=== PATIENT | female | born 1955 | race Caucasian/White ===

== ENCOUNTER 2020-08-09 12:16 | Inpatient (IN) | payer MEDICARE, BC ==
[~2020-08-09] VITALS: Ht 160 cm; Wt 95.9 kg
[2020-08-09 13:12] LABS: Basophils # (auto) 0.1 10 ^3/uL (0-0.2); Basophils % (auto) 0.7 % (0.0-2.0); Eosinophils # (auto) 0.1 10 ^3/uL (0-0.8); Eosinophils % (auto) 0.9 % (0.0-7.0); Hematocrit 39.3 % (36.0-46.0); Hemoglobin 13.1 g/dL (12.2-16.2); Lymphocytes # (auto) 1.3 10 ^3/uL (0.4-5.4); Lymphocytes % (auto) 16.6 % (10.0-50.0); Mean Corpuscular Hemoglobin 30.1 pg (28.0-32.0); Mean Corpuscular Hgb Conc. 33.3 g/dL (32.0-36.0); Mean Corpuscular Volume 90.2 fL (80.0-100.0); Monocytes # (auto) 0.7 10 ^3/uL (0-1.3); Monocytes % (auto) 8.6 % (0.0-12.0); Neutrophils # (auto) 5.7 10 ^3/uL (1.6-8.6); Neutrophils % (auto) 73.2 % (37.0-80.0); Nucleated Red Blood Cells % 0.1 %; Platelet Count (auto) 216 10^3/uL (140-450); Red Blood Cells 4.36 10^6/uL (4.0-5.20); Red Cell Distribution Width 15.1 % (11.8-14.3); White Blood Cell 7.8 10^3/uL (4.4-10.8)
[2020-08-09 13:28] LABS: INR 0.98 (0.9-1.15); Partial Thromboplastin Time 26.8 sec (23.0-31.2)
[2020-08-09 13:29] LABS: Albumin 3.9 g/dL (3.4-5.0); Anion Gap 2 (5-15); Blood Urea Nitrogen 15 mg/dL (7-18); Calcium 9.3 mg/dL (8.5-10.1); Carbon Dioxide 34 mmol/L (21-32); Chloride 103 mmol/L (98-107); Glucose 87 mg/dL (74-106); Magnesium 2.5 mg/dL (1.6-2.6); Potassium 4.8 mmol/L (3.5-5.1); Sodium 139 mmol/L (136-145)
[2020-08-09 13:34] LABS: Alanine Aminotransferase 86 U/L (13-56); Alkaline Phosphatase 75 U/L (45-117); Aspartate Aminotransferase 65 U/L (15-37); BUN/Creatinine Ratio 12.7; Bilirubin, Total 0.6 mg/dL (0.2-1.0); GFR African American 59 mL/min; GFR Non-African American 49 mL/min; Total Protein 7.1 g/dL (6.4-8.2)
[2020-08-09 13:45] LABS: Urine Bacteria FEW /hpf (None Seen); Urine Blood 3+ /uL (Negative); Urine Mucus FEW (None Seen); Urine Specific Gravity 1.026 (1.001-1.035); Urine WBC 4 /hpf (0 - 5)
[2020-08-09 13:47] LABS: Amylase 70 U/L (25-115); Lipase 274 U/L (73-393)
[2020-08-09 14:32] LABS: Alcohol, Urine < 3.0 mg/dL (0-10); Amphetamine Screen, Urine NEGATIVE (NEGATIVE); Barbiturate Scree,Urine NEGATIVE (NEGATIVE); Benzodiazephine Screen, Urine NEGATIVE (NEGATIVE); Cannabinoid Screen, Urine NEGATIVE (NEGATIVE); Cocaine Screen, Urine NEGATIVE (NEGATIVE); Opiate Scree,Urine NEGATIVE (NEGATIVE); Phencyclidine Screen, Urine NEGATIVE (NEGATIVE)
[2020-08-09] MEDS ORDERED: FUROSEMIDE 20 MG/2 ML VIAL IV ONE (14:45)
[2020-08-09] MEDS ORDERED: ALBUTEROL SULF 2.5 MG/0.5ML(0.5%) NEB SOLN NEB PRN (16:45)
[2020-08-09] MEDS ORDERED: ACETAMINOPHEN 500 MG TAB PO PRN (16:45)
[2020-08-09] MEDS ORDERED: NITROGLYCERIN 0.4 MG SL TAB SL PRN (16:45)
[2020-08-09] MEDS ORDERED: MORPHINE SULF INJ 2 MG/ML SYRINGE 1ML IV PRN ×2 (16:45)
[2020-08-09] MEDS ORDERED: DOCUSATE CALCIUM 240 MG CAP PO PRN (16:45)
[2020-08-09] MEDS ORDERED: hydrALAZINE HCL 20 MG/ML VL IV PRN (16:45)
[2020-08-09] MEDS ORDERED: LACTULOSE 20Gm/30ML SOLN PO PRN (16:45)
[2020-08-09] MEDS ORDERED: ONDANSETRON HCL 4 MG/2 ML VIAL IV PRN (16:45)
[2020-08-09] MEDS ORDERED: LORazepam 0.5 MG TAB PO PRN (16:45)
[2020-08-09 17:08] VITALS: BP 119/74
[2020-08-09 20:00] VITALS: BP 124/73
[2020-08-09 21:29] VITALS: BP 124/73
[2020-08-10 04:58] VITALS: BP 108/61
[2020-08-10 06:11] LABS: Basophils # (auto) 0 10 ^3/uL (0-0.2); Basophils % (auto) 0.5 % (0.0-2.0); Eosinophils # (auto) 0.1 10 ^3/uL (0-0.8); Eosinophils % (auto) 1.2 % (0.0-7.0); Hematocrit 41.5 % (36.0-46.0); Hemoglobin 14.1 g/dL (12.2-16.2); Lymphocytes # (auto) 0.9 10 ^3/uL (0.4-5.4); Lymphocytes % (auto) 14.7 % (10.0-50.0); Mean Corpuscular Hgb Conc. 33.9 g/dL (32.0-36.0); Mean Corpuscular Volume 91.5 fL (80.0-100.0); Monocytes # (auto) 0.4 10 ^3/uL (0-1.3); Monocytes % (auto) 6.7 % (0.0-12.0); Neutrophils # (auto) 4.9 10 ^3/uL (1.6-8.6); Neutrophils % (auto) 76.9 % (37.0-80.0); Nucleated Red Blood Cells % 0.3 %; Platelet Count (auto) 174 10^3/uL (140-450); Red Blood Cells 4.54 10^6/uL (4.0-5.20); Red Cell Distribution Width 15.3 % (11.8-14.3); White Blood Cell 6.3 10^3/uL (4.4-10.8)
[2020-08-10 06:28] LABS: Potassium 4.4 mmol/L (3.5-5.1)
[2020-08-10 06:41] LABS: Bilirubin, Total 0.5 mg/dL (0.2-1.0); Calcium 9.4 mg/dL (8.5-10.1); Total Protein 7.1 g/dL (6.4-8.2)
[2020-08-10] MEDS ORDERED: LEVOTHYROXINE SODIUM 25 MCG TAB PO SCH (07:00)
[2020-08-10 08:47] VITALS: BP 102/57
[2020-08-10] MEDS ORDERED: FUROSEMIDE 40 MG/4 ML VIAL IV ONE (10:00)
[2020-08-10] MEDS ORDERED: LISINOPRIL 5 MG TAB PO SCH (10:00)
[2020-08-10] MEDS: METOPROLOL TARTRATE 25 MG TAB PO SCH ×2 (10:28→22:01)
[2020-08-10] MEDS: PANTOPRAZOLE 40 MG TAB PO SCH (10:29)
[2020-08-10] MEDS: ENOXAPARIN SOD 40 MG/0.4 ML SYRINGE SC SCH (10:29)
[2020-08-10 13:00] VITALS: BP 105/61
[2020-08-10 16:50] VITALS: BP 100/55
[2020-08-10] MEDS: FUROSEMIDE 40 MG/4 ML VIAL IV SCH (18:15)
[2020-08-10 20:00] VITALS: BP 105/58
[2020-08-10 22:07] VITALS: BP 103/52
[2020-08-11 05:00] VITALS: BP 98/53
[2020-08-11] MEDS: FUROSEMIDE 40 MG/4 ML VIAL IV SCH ×2 (06:02→18:37)
[2020-08-11 06:22] LABS: Potassium 4.6 mmol/L (3.5-5.1)
[2020-08-11 06:26] LABS: Calcium 8.8 mg/dL (8.5-10.1)
[2020-08-11] MEDS: LEVOTHYROXINE SODIUM 100 MCG/5 ML INJ IV SCH (06:42)
[2020-08-11 07:42] LABS: Protein, Urine 28.1 mg/dL (0.0-11.9)
[2020-08-11 08:17] LABS: Urine Bacteria MANY /hpf (None Seen); Urine Blood 2+ /uL (Negative); Urine Budding Yeast OCCASIONAL /hpf (None Seen); Urine Hyaline Cast FEW /lpf (0 - 2); Urine Mucus FEW (None Seen); Urine Specific Gravity 1.009 (1.001-1.035); Urine Sperm PRESENT /hpf (None Seen); Urine WBC 113 /hpf (0 - 5); Urine WBC Clumps PRESENT /hpf (None Seen)
[2020-08-11 09:00] VITALS: BP 104/48
[2020-08-11] MEDS: ENOXAPARIN SOD 40 MG/0.4 ML SYRINGE SC SCH (10:41)
[2020-08-11] MEDS: PANTOPRAZOLE 40 MG TAB PO SCH (10:41)
[2020-08-11 13:00] VITALS: BP 114/57
[2020-08-11 17:00] VITALS: BP 113/71
[2020-08-11 20:00] VITALS: BP 100/60
[2020-08-11 22:00] VITALS: BP 100/60
[2020-08-12] VITALS (7 sets, daily range): BP systolic 98–129; BP diastolic 48–94
[2020-08-12] MEDS: FUROSEMIDE 40 MG/4 ML VIAL IV SCH ×2 (05:45→17:56)
[2020-08-12 06:03] LABS: Basophils # (auto) 0 10 ^3/uL (0-0.2); Basophils % (auto) 0.2 % (0.0-2.0); Eosinophils # (auto) 0 10 ^3/uL (0-0.8); Eosinophils % (auto) 0.3 % (0.0-7.0); Hematocrit 37.9 % (36.0-46.0); Hemoglobin 12.7 g/dL (12.2-16.2); Lymphocytes # (auto) 0.7 10 ^3/uL (0.4-5.4); Mean Corpuscular Hemoglobin 30.7 pg (28.0-32.0); Mean Corpuscular Hgb Conc. 33.6 g/dL (32.0-36.0); Mean Corpuscular Volume 91.4 fL (80.0-100.0); Monocytes # (auto) 0.7 10 ^3/uL (0-1.3); Monocytes % (auto) 8.8 % (0.0-12.0); Neutrophils # (auto) 6.6 10 ^3/uL (1.6-8.6); Neutrophils % (auto) 81.7 % (37.0-80.0); Platelet Count (auto) 147 10^3/uL (140-450); Red Blood Cells 4.15 10^6/uL (4.0-5.20); Red Cell Distribution Width 14.9 % (11.8-14.3); White Blood Cell 8.1 10^3/uL (4.4-10.8)
[2020-08-12 06:08] LABS: Calcium 9.1 mg/dL (8.5-10.1); Potassium 4.4 mmol/L (3.5-5.1)
[2020-08-12 06:14] LABS: BUN/Creatinine Ratio 16.2
[2020-08-12] MEDS: LEVOTHYROXINE SODIUM 100 MCG/5 ML INJ IV SCH (06:43)
[2020-08-12] MEDS: PANTOPRAZOLE 40 MG TAB PO SCH (09:48)
[2020-08-12] MEDS: ENOXAPARIN SOD 40 MG/0.4 ML SYRINGE SC SCH (09:48)
[2020-08-13] VITALS (7 sets, daily range): BP systolic 100–121; BP diastolic 53–67
[2020-08-13] MEDS: FUROSEMIDE 40 MG/4 ML VIAL IV SCH ×2 (06:13→17:24)
[2020-08-13] MEDS: ASPirin 81 mg TAB PO SCH (10:52)
[2020-08-13] MEDS: LEVOTHYROXINE SODIUM 100 MCG/5 ML INJ IV SCH (10:52)
[2020-08-13] MEDS: ENOXAPARIN SOD 40 MG/0.4 ML SYRINGE SC SCH (10:53)
[2020-08-13] MEDS: PANTOPRAZOLE 40 MG TAB PO SCH (10:53)
[2020-08-13] MEDS: CARVEDILOL 3.125 MG TAB PO SCH ×2 (10:53→22:21)
[2020-08-13 11:22] LABS: Cholesterol 241 mg/dL (< 200); Triglycerides 244 mg/dL (< 150)
[2020-08-13 11:24] LABS: HDL Cholesterol 49 mg/dL (40-59); LDL Cholesterol 167 mg/dL (< 100)
[2020-08-13] MEDS ORDERED: NETA1DRO OP (12:34)
[2020-08-13] MEDS ORDERED: TIMO0.5S66 EACHEYE (12:34)
[2020-08-14 05:00] VITALS: BP 97/47
[2020-08-14] MEDS: FUROSEMIDE 40 MG/4 ML VIAL IV SCH ×2 (06:03→17:30)
[2020-08-14] MEDS: LEVOTHYROXINE SODIUM 100 MCG/5 ML INJ IV SCH (06:46)
[2020-08-14 08:41] VITALS: BP 103/58
[2020-08-14] MEDS: ENOXAPARIN SOD 40 MG/0.4 ML SYRINGE SC SCH (10:10)
[2020-08-14] MEDS: CARVEDILOL 3.125 MG TAB PO SCH ×2 (10:10→21:26)
[2020-08-14] MEDS: ASPirin 81 mg TAB PO SCH (10:10)
[2020-08-14] MEDS: PANTOPRAZOLE 40 MG TAB PO SCH (10:11)
[2020-08-14 13:00] VITALS: BP 102/57
[2020-08-14 17:00] VITALS: BP 106/65
[2020-08-14 17:54] LABS: Urine Bacteria FEW /hpf (None Seen); Urine Blood 3+ /uL (Negative); Urine Mucus FEW (None Seen); Urine Specific Gravity 1.017 (1.001-1.035); Urine WBC 296 /hpf (0 - 5)
[2020-08-14] MEDS: ATORVASTATIN 20 MG TAB PO SCH (21:27)
[2020-08-14 22:00] VITALS: BP 97/56
[2020-08-15 05:00] VITALS: BP_SYST 112; BP_SYST 134; BP_DIAS 56; BP_DIAS 75
[2020-08-15 05:48] LABS: Basophils # (auto) 0 10 ^3/uL (0-0.2); Basophils % (auto) 0.6 % (0.0-2.0); Eosinophils # (auto) 0.1 10 ^3/uL (0-0.8); Eosinophils % (auto) 1.8 % (0.0-7.0); Hematocrit 33.6 % (36.0-46.0); Hemoglobin 11.4 g/dL (12.2-16.2); Lymphocytes # (auto) 0.8 10 ^3/uL (0.4-5.4); Lymphocytes % (auto) 11.5 % (10.0-50.0); Mean Corpuscular Hemoglobin 30.6 pg (28.0-32.0); Monocytes # (auto) 0.7 10 ^3/uL (0-1.3); Monocytes % (auto) 10.7 % (0.0-12.0); Neutrophils % (auto) 75.4 % (37.0-80.0); Nucleated Red Blood Cells % 0.1 %; Platelet Count (auto) 133 10^3/uL (140-450); Red Blood Cells 3.73 10^6/uL (4.0-5.20); Red Cell Distribution Width 15.2 % (11.8-14.3); White Blood Cell 6.7 10^3/uL (4.4-10.8)
[2020-08-15] MEDS: FUROSEMIDE 40 MG/4 ML VIAL IV SCH ×2 (06:01→18:00)
[2020-08-15] MEDS: LEVOTHYROXINE SODIUM 100 MCG/5 ML INJ IV SCH (06:01)
[2020-08-15 08:32] VITALS: BP 110/57
[2020-08-15] MEDS: ASPirin 81 mg TAB PO SCH (10:02)
[2020-08-15] MEDS: PANTOPRAZOLE 40 MG TAB PO SCH (10:02)
[2020-08-15] MEDS: CARVEDILOL 3.125 MG TAB PO SCH ×2 (10:03→21:50)
[2020-08-15] MEDS: ENOXAPARIN SOD 40 MG/0.4 ML SYRINGE SC SCH (10:03)
[2020-08-15] MEDS ORDERED: cefTRIAXone 1GM/50ML D5W 50 ML IV ONE (10:30)
[2020-08-15 12:51] VITALS: BP 97/51
[2020-08-15 17:00] VITALS: BP 101/60
[2020-08-15] MEDS: ATORVASTATIN 20 MG TAB PO SCH (21:50)
[2020-08-15 22:00] VITALS: BP 99/57
[2020-08-16 02:42] VITALS: BP 99/57
[2020-08-16 05:00] VITALS: BP 107/66
[2020-08-16] MEDS: FUROSEMIDE 40 MG/4 ML VIAL IV SCH ×2 (05:39→17:46)
[2020-08-16] MEDS: LEVOTHYROXINE SODIUM 100 MCG/5 ML INJ IV SCH (06:37)
[2020-08-16] MEDS: cefTRIAXone 1GM/50ML D5W 50 ML IV SCH (08:49)
[2020-08-16 09:00] VITALS: BP 105/44
[2020-08-16] MEDS: PANTOPRAZOLE 40 MG TAB PO SCH (10:38)
[2020-08-16] MEDS: CARVEDILOL 3.125 MG TAB PO SCH ×2 (10:39→23:16)
[2020-08-16] MEDS: ENOXAPARIN SOD 40 MG/0.4 ML SYRINGE SC SCH (10:39)
[2020-08-16 12:32] VITALS: BP 105/51
[2020-08-16 16:29] VITALS: BP 110/52
[2020-08-16 22:00] VITALS: BP 124/70
[2020-08-16] MEDS: ATORVASTATIN 20 MG TAB PO SCH (23:16)
[2020-08-17 05:00] VITALS: BP 109/61
[2020-08-17] MEDS: FUROSEMIDE 40 MG/4 ML VIAL IV SCH ×2 (06:29→17:53)
[2020-08-17] MEDS: LEVOTHYROXINE SODIUM 100 MCG/5 ML INJ IV SCH (06:30)
[2020-08-17] MEDS: cefTRIAXone 1GM/50ML D5W 50 ML IV SCH (08:41)
[2020-08-17 09:00] VITALS: BP 119/57
[2020-08-17] MEDS: PANTOPRAZOLE 40 MG TAB PO SCH (09:52)
[2020-08-17] MEDS: ENOXAPARIN SOD 40 MG/0.4 ML SYRINGE SC SCH (09:52)
[2020-08-17] MEDS: CARVEDILOL 3.125 MG TAB PO SCH (09:52)
[2020-08-17 11:45] LABS: Potassium 3.5 mmol/L (3.5-5.1)
[2020-08-17 11:49] LABS: BUN/Creatinine Ratio 22.8; Calcium 9.5 mg/dL (8.5-10.1)
[2020-08-17 12:46] VITALS: BP 110/58
[2020-08-17 16:51] VITALS: BP 107/55
[2020-08-17 18:02] VITALS: BP 107/55
== END 2020-08-17 19:44 | disposition home or self-care (01) | DRG 291 ==
LOC: ER 12:16 → TELE 16:36 → TELE-WESTW 19:50
PROVIDERS: ADMIT Family Medicine; ATTEND Family Medicine
PROC: 5A09357 Assistance with Respiratory Ventilation, Less than 24 Consecutive Hours, Continuous Positive Airway Pressure (ICD-10-PCS; principal; 2020-08-12)
DX: I13.0 Hypertensive heart and chronic kidney disease with heart failure and stage 1 through stage 4 chronic kidney disease, or unspecified chronic kidney disease (principal); I50.23 Acute on chronic systolic (congestive) heart failure; N17.0 Acute kidney failure with tubular necrosis; J96.02 Acute respiratory failure with hypercapnia; N39.0 Urinary tract infection, site not specified; I31.3 Pericardial effusion (noninflammatory); Z20.822 Contact with and (suspected) exposure to COVID-19; I42.9 Cardiomyopathy, unspecified; E03.9 Hypothyroidism, unspecified; R79.89 Other specified abnormal findings of blood chemistry; N18.31 Chronic kidney disease, stage 3a; K21.9 Gastro-esophageal reflux disease without esophagitis; E11.22 Type 2 diabetes mellitus with diabetic chronic kidney disease; F41.9 Anxiety disorder, unspecified; Z68.37 Body mass index [BMI] 37.0-37.9, adult; E66.01 Morbid (severe) obesity due to excess calories; E78.00 Pure hypercholesterolemia, unspecified; H40.9 Unspecified glaucoma; I48.91 Unspecified atrial fibrillation; K59.00 Constipation, unspecified; K82.4 Cholesterolosis of gallbladder; R31.0 Gross hematuria; Z88.0 Allergy status to penicillin; Z82.49 Family history of ischemic heart disease and other diseases of the circulatory system; Z82.5 Family history of asthma and other chronic lower respiratory diseases; Z82.62 Family history of osteoporosis; Z87.442 Personal history of urinary calculi; Z91.14 Patient's other noncompliance with medication regimen
CPT/HCPCS: 36415; 36600; 70450; 71045; 74176; 76705; 78582; 80048; 80053; 80061; 80307; 80320; 81001; 82150; 82570; 82805; 83605; 83690; 83735; 83880; 84156; 84300; 84443; 84484; 85025; 85379; 85610; 85730; 87086; 87426; 93005; 93306; 93925; 96374; 97110; 97116; 97530; G0378; J0696; J3490

== ENCOUNTER → 2020-08-31 | Outpatient (CLI) | payer MEDICARE, BC ==
[~2020-08-31] MED LIST: NETA1DRO OP; TIMO0.5S66 EACHEYE
== END | disposition home or self-care (01) ==
LOC: LAB 13:40
PROVIDERS: ATTEND Internal Medicine
DX: Z12.11 Encounter for screening for malignant neoplasm of colon (principal)
CPT/HCPCS: 82274

== ENCOUNTER → 2020-09-06 | Outpatient (CLI) | payer MEDICARE, BC ==
[2020-09-06 11:12] LABS: Basophils # (auto) 0 10 ^3/uL (0-0.2); Basophils % (auto) 0.4 % (0.0-2.0); Eosinophils # (auto) 0.2 10 ^3/uL (0-0.8); Eosinophils % (auto) 1.8 % (0.0-7.0); Hematocrit 34.3 % (36.0-46.0); Hemoglobin 11.2 g/dL (12.2-16.2); Lymphocytes # (auto) 1.7 10 ^3/uL (0.4-5.4); Lymphocytes % (auto) 16.3 % (10.0-50.0); Mean Corpuscular Hemoglobin 28.9 pg (28.0-32.0); Mean Corpuscular Hgb Conc. 32.8 g/dL (32.0-36.0); Mean Corpuscular Volume 88.1 fL (80.0-100.0); Monocytes % (auto) 9.5 % (0.0-12.0); Neutrophils # (auto) 7.6 10 ^3/uL (1.6-8.6); Nucleated Red Blood Cells % 0.1 %; Platelet Count (auto) 334 10^3/uL (140-450); Red Blood Cells 3.89 10^6/uL (4.0-5.20); Red Cell Distribution Width 15.2 % (11.8-14.3); White Blood Cell 10.6 10^3/uL (4.4-10.8)
[2020-09-06 11:49] LABS: Urine Bacteria NONE SEEN /hpf (None Seen); Urine Blood Negative /uL (Negative); Urine Hyaline Cast FEW /lpf (0 - 2); Urine Specific Gravity 1.006 (1.001-1.035); Urine WBC 1 /hpf (0 - 5)
[2020-09-06 11:50] LABS: Potassium 4.9 mmol/L (3.5-5.1)
[2020-09-06 11:59] LABS: Albumin 3.5 g/dL (3.4-5.0); BUN/Creatinine Ratio 19.5; Bilirubin, Total 0.8 mg/dL (0.2-1.0); Calcium 9.5 mg/dL (8.5-10.1); Total Protein 7.1 g/dL (6.4-8.2)
[2020-09-06 12:41] LABS: Free T4 (Free Thyroxine) 1.26 ng/dL (0.89-1.76)
== END | disposition home or self-care (01) ==
LOC: LAB 10:51
PROVIDERS: ATTEND Internal Medicine
DX: I10 Essential (primary) hypertension (principal); E03.9 Hypothyroidism, unspecified; E11.9 Type 2 diabetes mellitus without complications; E55.9 Vitamin D deficiency, unspecified
CPT/HCPCS: 36415; 80053; 80061; 81001; 82306; 82607; 83036; 84439; 84443; 85025

== ENCOUNTER → 2020-10-02 | Outpatient (CLI) | payer MEDICARE, BC ==
[2020-10-02 12:42] LABS: Calcium 9.5 mg/dL (8.5-10.1); Potassium 4.8 mmol/L (3.5-5.1)
[2020-10-02 12:44] LABS: BUN/Creatinine Ratio 17.4
== END | disposition home or self-care (01) ==
LOC: LAB 11:20
PROVIDERS: ATTEND Internal Medicine
DX: I50.22 Chronic systolic (congestive) heart failure (principal); E03.9 Hypothyroidism, unspecified
CPT/HCPCS: 36415; 80048; 83880; 84439; 84443

== ENCOUNTER → 2020-10-11 | Outpatient (CLI) | payer MEDICARE, BC | END | disposition home or self-care (01) | LOC: XYW 10:54 | PROVIDERS: ATTEND Internal Medicine | DX: I08.3 Combined rheumatic disorders of mitral, aortic and tricuspid valves (principal); I50.22 Chronic systolic (congestive) heart failure | CPT/HCPCS: 93306 ==

== ENCOUNTER 2020-10-12 08:01 | Inpatient (IN) | payer MEDICARE, BC ==
[~2020-10-12] VITALS: Ht 160 cm; Wt 80.1 kg
[2020-10-12] VITALS (7 sets, daily range): BP systolic 114–120; BP diastolic 55–74
[2020-10-12] MEDS ORDERED: FUROSEMIDE 40 MG/4 ML VIAL IV ONE ×2 (08:30→10:15)
[2020-10-12 08:43] LABS: Basophils # (auto) 0.1 10 ^3/uL (0-0.2); Basophils % (auto) 0.7 % (0.0-2.0); Eosinophils # (auto) 0.1 10 ^3/uL (0-0.8); Hematocrit 31.2 % (36.0-46.0); Hemoglobin 10.1 g/dL (12.2-16.2); Lymphocytes # (auto) 1.8 10 ^3/uL (0.4-5.4); Lymphocytes % (auto) 15.7 % (10.0-50.0); Mean Corpuscular Hgb Conc. 32.2 g/dL (32.0-36.0); Mean Corpuscular Volume 83.6 fL (80.0-100.0); Monocytes # (auto) 1.1 10 ^3/uL (0-1.3); Monocytes % (auto) 9.5 % (0.0-12.0); Neutrophils # (auto) 8.1 10 ^3/uL (1.6-8.6); Neutrophils % (auto) 73.1 % (37.0-80.0); Nucleated Red Blood Cells % 0.3 %; Platelet Count (auto) 414 10^3/uL (140-450); Red Blood Cells 3.73 10^6/uL (4.0-5.20); Red Cell Distribution Width 16.9 % (11.8-14.3); White Blood Cell 11.2 10^3/uL (4.4-10.8)
[2020-10-12 08:57] LABS: INR 1.13 (0.9-1.15); Partial Thromboplastin Time 25.5 sec (23.0-31.2)
[2020-10-12 08:59] LABS: Albumin 3.5 g/dL (3.4-5.0); BUN/Creatinine Ratio 20.2; Calcium 9.3 mg/dL (8.5-10.1); Magnesium 2.4 mg/dL (1.6-2.6); Potassium 4.5 mmol/L (3.5-5.1)
[2020-10-12 09:03] LABS: Bilirubin, Total 0.7 mg/dL (0.2-1.0)
[2020-10-12 09:53] LABS: Urine Bacteria NONE SEEN /hpf (None Seen); Urine Blood Negative /uL (Negative); Urine Hyaline Cast MANY /lpf (0 - 2); Urine Mucus FEW (None Seen); Urine Specific Gravity 1.008 (1.001-1.035); Urine WBC 3 /hpf (0 - 5)
[2020-10-12] MEDS ORDERED: LACTULOSE 20Gm/30ML SOLN PO PRN ×3 (10:15→11:30)
[2020-10-12] MEDS ORDERED: MORPHINE SULF INJ 2 MG/ML SYRINGE 1ML IV PRN ×2 (10:15→11:30)
[2020-10-12] MEDS ORDERED: NITROGLYCERIN 0.4 MG SL TAB SL PRN (10:15)
[2020-10-12] MEDS ORDERED: traMADol HCL 50 MG TAB PO PRN (11:30)
[2020-10-12] MEDS ORDERED: ONDANSETRON HCL 4 MG/2 ML VIAL IV PRN (11:30)
[2020-10-12] MEDS ORDERED: ACETAMINOPHEN 500 MG TAB PO PRN (11:30)
[2020-10-12] MEDS ORDERED: TEMAZEPAM 15 MG CAP PO PRN (11:30)
[2020-10-12] MEDS ORDERED: ALBUTEROL SULF 2.5 MG/0.5ML(0.5%) NEB SOLN NEB PRN (11:30)
[2020-10-12] MEDS ORDERED: levoFLOXacin 500MG 100 ML IV ONE (11:45)
[2020-10-12] MEDS: IPRATROPIUM BROM 0.5 MG/2.5ML INH SOL NEB SCH ×2 (12:00→18:58)
[2020-10-12] MEDS: ALBUTEROL SULF 2.5 MG/0.5ML(0.5%) NEB SOLN NEB SCH ×2 (12:00→18:58)
[2020-10-12] MEDS ORDERED: SODIUM CHLOR 0.9% PF (SALINE LOCK) 10ML VIAL/SYR IV SCH (14:00)
[2020-10-12] MEDS: SODIUM CHLOR 0.9% PF (SALINE LOCK) 10ML VIAL/SYR IV SCH ×2 (14:02→22:48)
[2020-10-12] MEDS: FUROSEMIDE 40 MG/4 ML VIAL IV SCH (18:56)
[2020-10-12] MEDS: ATORVASTATIN 20 MG TAB PO SCH (22:47)
[2020-10-12] MEDS: TIMOLOL MAL 0.5% OPTH(EYE) SOL 5ML EACHEYE SCH (22:47)
[2020-10-12] MEDS: CARVEDILOL 3.125 MG TAB PO SCH (22:48)
[2020-10-13] VITALS (12 sets, daily range): BP systolic 95–114; BP diastolic 41–73
[2020-10-13] MEDS: ALBUTEROL SULF 2.5 MG/0.5ML(0.5%) NEB SOLN NEB SCH ×4 (00:14→19:20)
[2020-10-13] MEDS: IPRATROPIUM BROM 0.5 MG/2.5ML INH SOL NEB SCH ×4 (00:14→19:20)
[2020-10-13 05:56] LABS: Basophils # (auto) 0 10 ^3/uL (0-0.2); Basophils % (auto) 0.5 % (0.0-2.0); Eosinophils # (auto) 0.1 10 ^3/uL (0-0.8); Eosinophils % (auto) 1.6 % (0.0-7.0); Hematocrit 31.1 % (36.0-46.0); Hemoglobin 10.2 g/dL (12.2-16.2); Lymphocytes # (auto) 1.3 10 ^3/uL (0.4-5.4); Lymphocytes % (auto) 14.9 % (10.0-50.0); Mean Corpuscular Hemoglobin 27.2 pg (28.0-32.0); Mean Corpuscular Hgb Conc. 32.7 g/dL (32.0-36.0); Mean Corpuscular Volume 83.3 fL (80.0-100.0); Monocytes # (auto) 0.9 10 ^3/uL (0-1.3); Monocytes % (auto) 9.6 % (0.0-12.0); Neutrophils # (auto) 6.6 10 ^3/uL (1.6-8.6); Neutrophils % (auto) 73.4 % (37.0-80.0); Nucleated Red Blood Cells % 0.1 %; Platelet Count (auto) 324 10^3/uL (140-450); Red Blood Cells 3.74 10^6/uL (4.0-5.20); Red Cell Distribution Width 17.2 % (11.8-14.3)
[2020-10-13] MEDS: SODIUM CHLOR 0.9% PF (SALINE LOCK) 10ML VIAL/SYR IV SCH ×3 (06:20→21:44)
[2020-10-13] MEDS: FUROSEMIDE 40 MG/4 ML VIAL IV SCH ×2 (06:20→18:00)
[2020-10-13 06:25] LABS: BUN/Creatinine Ratio 21.4; Bilirubin, Total 0.6 mg/dL (0.2-1.0); Calcium 9.1 mg/dL (8.5-10.1); Total Protein 6.3 g/dL (6.4-8.2)
[2020-10-13] MEDS: TIMOLOL MAL 0.5% OPTH(EYE) SOL 5ML EACHEYE SCH ×2 (09:38→21:43)
[2020-10-13] MEDS: ENOXAPARIN SOD 40 MG/0.4 ML SYRINGE SC SCH (09:38)
[2020-10-13] MEDS: levoFLOXacin 250MG 50 ML IV SCH (09:38)
[2020-10-13] MEDS: NITROGLYCERIN 0.2MG/HR TOPICAL PATCH TD SCH (09:39)
[2020-10-13] MEDS: CARVEDILOL 3.125 MG TAB PO SCH ×2 (09:39→21:38)
[2020-10-13] MEDS: ASPirin 81 mg TAB PO SCH (09:39)
[2020-10-13] MEDS: POTASSIUM CHL 20 Meq TABLET PO SCH (09:40)
[2020-10-13] MEDS: ENALAPRIL MALEATE 10 MG TAB PO SCH (09:40)
[2020-10-13] MEDS ORDERED: ENOXAPARIN SOD 40 MG/0.4 ML SYRINGE SC SCH (10:00)
[2020-10-13] MEDS: Ensure HIGH Protein Chocolate 8oz Bottle PO SCH ×2 (11:44→18:00)
[2020-10-13] MEDS ORDERED: LEVO125T7 PO (14:17)
[2020-10-13] MEDS ORDERED: CAR3125T PO (14:17)
[2020-10-13] MEDS ORDERED: POTA10TA51 PO (14:17)
[2020-10-13] MEDS ORDERED: BUME1TAB3 PO (14:17)
[2020-10-13] MEDS ORDERED: ATO40T PO (14:17)
[2020-10-13] MEDS: ATORVASTATIN 20 MG TAB PO SCH (21:43)
[2020-10-14] VITALS (10 sets, daily range): BP systolic 93–111; BP diastolic 43–49
[2020-10-14] MEDS: ALBUTEROL SULF 2.5 MG/0.5ML(0.5%) NEB SOLN NEB SCH ×4 (00:42→18:28)
[2020-10-14] MEDS: IPRATROPIUM BROM 0.5 MG/2.5ML INH SOL NEB SCH ×4 (00:42→18:28)
[2020-10-14 03:44] LABS: Basophils # (auto) 0.1 10 ^3/uL (0-0.2); Basophils % (auto) 0.5 % (0.0-2.0); Eosinophils # (auto) 0.4 10 ^3/uL (0-0.8); Eosinophils % (auto) 3.9 % (0.0-7.0); Hematocrit 31.5 % (36.0-46.0); Hemoglobin 10.4 g/dL (12.2-16.2); Lymphocytes # (auto) 1.5 10 ^3/uL (0.4-5.4); Lymphocytes % (auto) 15.5 % (10.0-50.0); Mean Corpuscular Hemoglobin 27.4 pg (28.0-32.0); Mean Corpuscular Hgb Conc. 32.9 g/dL (32.0-36.0); Mean Corpuscular Volume 83.2 fL (80.0-100.0); Monocytes # (auto) 0.9 10 ^3/uL (0-1.3); Monocytes % (auto) 9.5 % (0.0-12.0); Neutrophils # (auto) 6.7 10 ^3/uL (1.6-8.6); Neutrophils % (auto) 70.6 % (37.0-80.0); Nucleated Red Blood Cells % 0.1 %; Platelet Count (auto) 316 10^3/uL (140-450); Red Blood Cells 3.79 10^6/uL (4.0-5.20); Red Cell Distribution Width 17.1 % (11.8-14.3); White Blood Cell 9.5 10^3/uL (4.4-10.8)
[2020-10-14 04:04] LABS: Albumin 2.8 g/dL (3.4-5.0); BUN/Creatinine Ratio 20.5; Calcium 8.7 mg/dL (8.5-10.1)
[2020-10-14 04:07] LABS: Bilirubin, Total 0.6 mg/dL (0.2-1.0)
[2020-10-14] MEDS: SODIUM CHLOR 0.9% PF (SALINE LOCK) 10ML VIAL/SYR IV SCH ×3 (06:29→21:36)
[2020-10-14] MEDS: FUROSEMIDE 40 MG/4 ML VIAL IV SCH ×2 (06:29→17:58)
[2020-10-14] MEDS: Ensure HIGH Protein Chocolate 8oz Bottle PO SCH ×3 (08:25→18:36)
[2020-10-14] MEDS: ENALAPRIL MALEATE 10 MG TAB PO SCH (09:53)
[2020-10-14] MEDS: ASPirin 81 mg TAB PO SCH (09:58)
[2020-10-14] MEDS: POTASSIUM CHL 20 Meq TABLET PO SCH (09:58)
[2020-10-14] MEDS: TIMOLOL MAL 0.5% OPTH(EYE) SOL 5ML EACHEYE SCH ×2 (09:59→21:36)
[2020-10-14] MEDS: ENOXAPARIN SOD 40 MG/0.4 ML SYRINGE SC SCH (09:59)
[2020-10-14] MEDS: levoFLOXacin 250MG 50 ML IV SCH (09:59)
[2020-10-14] MEDS: CARVEDILOL 3.125 MG TAB PO SCH ×2 (09:59→22:43)
[2020-10-14] MEDS: NITROGLYCERIN 0.2MG/HR TOPICAL PATCH TD SCH ×2 (09:59→10:00)
[2020-10-14] MEDS ORDERED: LEVOTHYROXINE SODIUM 50 MCG TAB PO ONE (11:30)
[2020-10-14] MEDS: ATORVASTATIN 20 MG TAB PO SCH (21:36)
[2020-10-15] VITALS: BP 94/43
[2020-10-15] MEDS: IPRATROPIUM BROM 0.5 MG/2.5ML INH SOL NEB SCH ×2 (00:36→06:39)
[2020-10-15] MEDS: ALBUTEROL SULF 2.5 MG/0.5ML(0.5%) NEB SOLN NEB SCH ×2 (00:36→06:39)
[2020-10-15 02:00] VITALS: BP 97/43
[2020-10-15 05:23] LABS: Basophils # (auto) 0 10 ^3/uL (0-0.2); Basophils % (auto) 0.6 % (0.0-2.0); Eosinophils # (auto) 0.3 10 ^3/uL (0-0.8); Hematocrit 32.3 % (36.0-46.0); Hemoglobin 10.7 g/dL (12.2-16.2); Lymphocytes # (auto) 1.4 10 ^3/uL (0.4-5.4); Lymphocytes % (auto) 17.2 % (10.0-50.0); Mean Corpuscular Hemoglobin 27.5 pg (28.0-32.0); Mean Corpuscular Hgb Conc. 33.2 g/dL (32.0-36.0); Mean Corpuscular Volume 82.9 fL (80.0-100.0); Monocytes % (auto) 12.5 % (0.0-12.0); Neutrophils # (auto) 5.5 10 ^3/uL (1.6-8.6); Neutrophils % (auto) 65.7 % (37.0-80.0); Nucleated Red Blood Cells % 0.1 %; Platelet Count (auto) 305 10^3/uL (140-450); Red Blood Cells 3.89 10^6/uL (4.0-5.20); White Blood Cell 8.4 10^3/uL (4.4-10.8)
[2020-10-15 05:42] LABS: Potassium 3.9 mmol/L (3.5-5.1)
[2020-10-15] MEDS: SODIUM CHLOR 0.9% PF (SALINE LOCK) 10ML VIAL/SYR IV SCH (06:21)
[2020-10-15] MEDS: FUROSEMIDE 40 MG/4 ML VIAL IV SCH (06:29)
[2020-10-15] MEDS ORDERED: LEVOTHYROXINE SODIUM 50 MCG TAB PO SCH (07:00)
[2020-10-15 07:46] VITALS: BP 99/49
[2020-10-15] MEDS ORDERED: FURO1TAB31 PO (08:59)
[2020-10-15] MEDS ORDERED: POTA-220 PO (08:59)
[2020-10-15] MEDS: Ensure HIGH Protein Chocolate 8oz Bottle PO SCH (09:39)
[2020-10-15] MEDS: levoFLOXacin 250MG 50 ML IV SCH (09:48)
[2020-10-15] MEDS: ASPirin 81 mg TAB PO SCH (09:49)
[2020-10-15] MEDS: POTASSIUM CHL 20 Meq TABLET PO SCH (09:49)
[2020-10-15] MEDS: TIMOLOL MAL 0.5% OPTH(EYE) SOL 5ML EACHEYE SCH (09:49)
[2020-10-15] MEDS: CARVEDILOL 3.125 MG TAB PO SCH (09:50)
[2020-10-15] MEDS: ENALAPRIL MALEATE 10 MG TAB PO SCH (09:50)
[2020-10-15] MEDS: ENOXAPARIN SOD 40 MG/0.4 ML SYRINGE SC SCH (09:51)
[2020-10-15] MEDS: NITROGLYCERIN 0.2MG/HR TOPICAL PATCH TD SCH (09:51)
[2020-10-15 10:15] VITALS: BP 97/50
== END 2020-10-15 11:00 | disposition home or self-care (01) | DRG 280 ==
LOC: ER 08:01 → TELE 10:02 → DOU IN ICU 16:04
PROVIDERS: ADMIT Internal Medicine; ATTEND Internal Medicine
DX: I50.23 Acute on chronic systolic (congestive) heart failure (principal); J18.9 Pneumonia, unspecified organism; I21.A1 Myocardial infarction type 2; N39.0 Urinary tract infection, site not specified; E44.0 Moderate protein-calorie malnutrition; I42.9 Cardiomyopathy, unspecified; Z20.822 Contact with and (suspected) exposure to COVID-19; D63.8 Anemia in other chronic diseases classified elsewhere; K21.9 Gastro-esophageal reflux disease without esophagitis; H40.9 Unspecified glaucoma; E03.9 Hypothyroidism, unspecified; E66.9 Obesity, unspecified; I34.0 Nonrheumatic mitral (valve) insufficiency; E78.5 Hyperlipidemia, unspecified; Z81.1 Family history of alcohol abuse and dependence; Z82.49 Family history of ischemic heart disease and other diseases of the circulatory system; Z82.62 Family history of osteoporosis; Z84.89 Family history of other specified conditions; Z83.511 Family history of glaucoma; Z82.5 Family history of asthma and other chronic lower respiratory diseases; Z88.0 Allergy status to penicillin; Z79.899 Other long term (current) drug therapy; Z79.891 Long term (current) use of opiate analgesic; Z79.01 Long term (current) use of anticoagulants; Z91.012 Allergy to eggs; R73.9 Hyperglycemia, unspecified; N18.31 Chronic kidney disease, stage 3a
CPT/HCPCS: 36415; 71045; 80048; 80053; 81001; 82550; 83735; 83880; 84443; 84484; 85025; 85610; 85652; 85730; 86141; 87040; 87086; 87426; 93005; 94640; 96365; 96375; 96376; G0378; J1956

== ENCOUNTER → 2020-10-22 | Outpatient (CLI) | payer MEDICARE, BC ==
[~2020-10-22] MED LIST changes: +ATO40T PO; +CAR3125T PO; +FURO1TAB31 PO; +LEVO125T7 PO; -NETA1DRO OP; +POTA-220 PO
[2020-10-22 17:04] LABS: Albumin 3.1 g/dL (3.4-5.0); BUN/Creatinine Ratio 21.4; Potassium 4.3 mmol/L (3.5-5.1)
[2020-10-22 17:07] LABS: Bilirubin, Total 0.8 mg/dL (0.2-1.0)
== END | disposition home or self-care (01) ==
LOC: LAB 16:30
PROVIDERS: ATTEND Internal Medicine
DX: I50.23 Acute on chronic systolic (congestive) heart failure (principal)
CPT/HCPCS: 36415; 80053

== ENCOUNTER → 2020-11-26 | Outpatient (CLI) | payer MEDICARE, BC ==
[2020-11-26 12:10] LABS: Calcium 9.7 mg/dL (8.5-10.1); Potassium 4.6 mmol/L (3.5-5.1)
[2020-11-26 12:12] LABS: BUN/Creatinine Ratio 34.1
== END | disposition home or self-care (01) ==
LOC: LAB 11:18
PROVIDERS: ATTEND Internal Medicine
DX: I50.22 Chronic systolic (congestive) heart failure (principal); E03.9 Hypothyroidism, unspecified
CPT/HCPCS: 36415; 80048; 84439; 84443

== ENCOUNTER → 2020-12-03 | Outpatient (CLI) | payer MEDICARE, BC ==
[~2020-12-03] MED LIST changes: +ASPI-543 PO; +CHOL20007 PO; +POTA10TA51 PO; +SACU1TAB PO
[2020-12-03 08:57] LABS: Basophils # (auto) 0 10 ^3/uL (0-0.2); Basophils % (auto) 0.6 % (0.0-2.0); Eosinophils # (auto) 0.2 10 ^3/uL (0-0.8); Eosinophils % (auto) 3.3 % (0.0-7.0); Hematocrit 31.6 % (36.0-46.0); Hemoglobin 10.5 g/dL (12.2-16.2); Lymphocytes # (auto) 1.5 10 ^3/uL (0.4-5.4); Lymphocytes % (auto) 20.5 % (10.0-50.0); Mean Corpuscular Hemoglobin 25.6 pg (28.0-32.0); Mean Corpuscular Hgb Conc. 33.2 g/dL (32.0-36.0); Mean Corpuscular Volume 77.2 fL (80.0-100.0); Monocytes # (auto) 0.8 10 ^3/uL (0-1.3); Monocytes % (auto) 10.8 % (0.0-12.0); Neutrophils # (auto) 4.9 10 ^3/uL (1.6-8.6); Neutrophils % (auto) 64.8 % (37.0-80.0); Red Blood Cells 4.09 10^6/uL (4.0-5.20); Red Cell Distribution Width 17.5 % (11.8-14.3); White Blood Cell 7.5 10^3/uL (4.4-10.8)
[2020-12-03 09:00] LABS: INR 0.99 (0.9-1.15); Partial Thromboplastin Time 26.2 sec (23.0-31.2)
[2020-12-03 09:18] LABS: Albumin 3.2 g/dL (3.4-5.0); Calcium 9.4 mg/dL (8.5-10.1); Potassium 4.3 mmol/L (3.5-5.1)
[2020-12-03 09:21] LABS: BUN/Creatinine Ratio 31.6; Bilirubin, Total 0.5 mg/dL (0.2-1.0); Total Protein 6.9 g/dL (6.4-8.2)
== END | disposition home or self-care (01) ==
LOC: LAB 08:33
PROVIDERS: ATTEND Internal Medicine
DX: Z01.812 Encounter for preprocedural laboratory examination (principal); I50.22 Chronic systolic (congestive) heart failure
CPT/HCPCS: 36415; 80053; 85025; 85610; 85730

== ENCOUNTER → 2020-12-03 | Outpatient (CLI) | payer MEDICARE, BC ==
[~2020-12-03] VITALS: Ht 160 cm; Wt 74.4 kg
== END | disposition home or self-care (01) ==
LOC: LAB 09:46 → EDSTATUS 12-05 07:06 → CATH 12-05 08:50
PROVIDERS: ATTEND Internal Medicine
DX: Z01.818 Encounter for other preprocedural examination (principal); I50.9 Heart failure, unspecified; Z20.822 Contact with and (suspected) exposure to COVID-19; Z98.890 Other specified postprocedural states; Z79.899 Other long term (current) drug therapy